=== PATIENT | female | born 1950 | race Caucasian/White ===

== ENCOUNTER 2019-01-14 14:01 | Emergency (ER) | payer MEDICARE, MEDICAID ==
[~2019-01-14] VITALS: Ht 172.7 cm; Wt 75.0 kg
[~2019-01-14 14:01] MED LIST: ALBU18HF2 IH; ASPI81TA52 PO; BUDE10.23 IH; DANT25CA PO; DIT5T PO; IBUP-1984 PO; LAMO100T2 PO; LEVO50TA67 PO; MULT-1074 PO; NORCO10T PO; OMEP-84 PO; OXYC20TA55 PO; TIOT18CA7 IH; ZOF4T PO
[2019-01-14 14:03] VITALS: BP 126/54
== END 2019-01-14 15:48 | disposition home or self-care (01) ==
LOC: ER 14:02
DX: S52.591A Other fractures of lower end of right radius, initial encounter for closed fracture (principal); J44.9 Chronic obstructive pulmonary disease, unspecified; G89.29 Other chronic pain; Z88.0 Allergy status to penicillin; Z88.8 Allergy status to other drugs, medicaments and biological substances; Z79.82 Long term (current) use of aspirin; Z79.899 Other long term (current) drug therapy; W18.39XA Other fall on same level, initial encounter; Y93.01 Activity, walking, marching and hiking; Y92.89 Other specified places as the place of occurrence of the external cause; Y99.8 Other external cause status
CPT/HCPCS: 29125; 73110; 99283

== ENCOUNTER 2019-12-12 06:27 | Day surgery (SDC) | payer MEDICARE, MEDICAID ==
[~2019-12-12] VITALS: Ht 170.2 cm; Wt 75.0 kg
[2019-12-12] VITALS (11 sets, daily range): BP systolic 105–122; BP diastolic 40–50
[2019-12-12] MEDS ORDERED: diphenhydrAMINE 25mg capsule PO PRN (06:55)
[2019-12-12] MEDS ORDERED: LORazepam 0.5 MG tablet PO PRN (06:55)
[2019-12-12] MEDS ORDERED: nitroGLYCERIN 0.4mg SUBLingual tab SL PRN ×2 (06:55→11:35)
[2019-12-12] MEDS ORDERED: normal saline 1,000 ML IV SCH (06:55)
[2019-12-12] MEDS ORDERED: IBUP-1986 PO (07:05)
[2019-12-12] MEDS ORDERED: BUPR75TA8 PO (07:05)
[2019-12-12] MEDS ORDERED: BACL10TA2 PO (07:05)
[2019-12-12 07:07] LABS: BASOPHILS % (AUTO) 0.4 % (0-1); EOSINOPHILS # (AUTO) 0.2 X10'3 (0-0.9); EOSINOPHILS % (AUTO) 2.5 % (0-6); HEMATOCRIT 43.7 % (35.0-45.0); HEMOGLOBIN 14.4 g/dl (12.0-16.0); LYMPHOCYTES # (AUTO) 2.7 X10'3 (1.1-4.8); LYMPHOCYTES % (AUTO) 29.6 % (21-51); MEAN CORPUSCULAR HEMOGLOBIN 30.6 PG (27.0-31.0); MEAN CORPUSCULAR HGB CONC 33.1 g/dL (33.0-36.5); MEAN CORPUSCULAR VOLUME 92.6 FL (78-98); MEAN PLATELET VOLUME 7.5 FL (7.4-10.4); MONOCYTES # (AUTO) 0.9 X10'3 (0-0.9); MONOCYTES % (AUTO) 9.4 % (2-12); NEUTROPHILS # (AUTO) 5.3 X10'3 (1.8-7.7); NEUTROPHILS % (AUTO) 58.1 % (42-75); PLATELET COUNT 404 X10'3 (140-440); RED BLOOD COUNT 4.71 X10'6 (4.20-5.60); WHITE BLOOD COUNT 9.2 X10'3 (4.5-11.0)
[2019-12-12] MEDS ORDERED: LEVO25TA7 PO (07:07)
[2019-12-12] MEDS ORDERED: OXYC10TA57 PO (07:07)
[2019-12-12 07:18] LABS: ALBUMIN 3.6 G/DL (3.4-5.0); ANION GAP 7 (8-16); BLOOD UREA NITROGEN 12 MG/DL (7-18); BUN/CREATININE RATIO 17.6 (6.6-38.0); CALCIUM 9.2 MG/DL (8.5-10.1); CHLORIDE 107 MMOL/L (99-107); CREATININE 0.68 MG/DL (0.40-0.90); GLUCOSE 99 MG/DL (70-104); POTASSIUM 3.9 MMOL/L (3.5-5.1); SODIUM 143 MMOL/L (135-145); TOTAL CARBON DIOXIDE 28.7 MMOL/L (24-32); eGFR 86 ML/MIN
[2019-12-12 07:19] LABS: PARTIAL THROMBOPLASTIN TIME 28 SECONDS (22-32)
[2019-12-12] MEDS ORDERED: midazolam 2 mg/2 ml injection ONE ×2 (09:56→10:45)
[2019-12-12] MEDS ORDERED: LIDOcaine 1% (10mg/ml)w/preservative injection 20ml MDV ONE (09:56)
[2019-12-12] MEDS ORDERED: heparin 1,000 UNITS/NS 500ml 500 ML ONE (09:56)
[2019-12-12] MEDS ORDERED: fentaNYL/PF 50MCG/1 ML 2ML syringe ONE (09:56)
[2019-12-12] MEDS ORDERED: iohexol 350MG/ML 100ml bottle IV ONE (09:56)
[2019-12-12] MEDS ORDERED: iohexol 350 MG/ML 50ML vial IV ONE (09:56)
[2019-12-12] MEDS ORDERED: HYDROcodone/acetaminophen 5mg/325mg tablet PO PRN (11:30)
[2019-12-12] MEDS ORDERED: ondansetron/PF 4mg/2ml inj IV PRN (11:30)
[2019-12-12] MEDS ORDERED: normal saline 1000ml 1,000 ML IV SCH (11:30)
[2019-12-12] MEDS ORDERED: HYDROcodone/acetaminophen 10/325mg tab PO PRN (11:35)
[2019-12-12] MEDS ORDERED: OXAZEpam 15mg capsule PO PRN (11:35)
[2019-12-12] MEDS ORDERED: proCHLORperazine 10 MG/2 ml inj IV PRN (11:35)
== END 2019-12-12 17:00 | disposition home or self-care (01) ==
LOC: SSTAY O 06:27 → MED 3N 06:32 → SSTAY O 17:00
PROVIDERS: ATTEND Internal Medicine Cardiovascular Disease
DX: Z01.810 Encounter for preprocedural cardiovascular examination (principal); I25.10 Atherosclerotic heart disease of native coronary artery without angina pectoris; C34.11 Malignant neoplasm of upper lobe, right bronchus or lung; I70.201 Unspecified atherosclerosis of native arteries of extremities, right leg; G89.4 Chronic pain syndrome; F17.210 Nicotine dependence, cigarettes, uncomplicated; J44.9 Chronic obstructive pulmonary disease, unspecified; E78.5 Hyperlipidemia, unspecified; Z98.890 Other specified postprocedural states; Z79.899 Other long term (current) drug therapy; Z79.01 Long term (current) use of anticoagulants
CPT/HCPCS: 36415; 71046; 80048; 85025; 85610; 85730; 93458; 99152; C1769; J1644; J2001; J2250; J3010; J7030; Q0163; Q9967; 93005; 99153; A4620; A6258; C1760

== ENCOUNTER 2020-01-07 11:08 | Outpatient (CLI) | payer MEDICARE, MEDICAID ==
[~2020-01-07 11:08] MED LIST changes: -ALBU18HF2 IH; -ASPI81TA52 PO; +BUPR150T6 PO; +CALC1TAB97 PO; -DANT25CA PO; -DIT5T PO; -IBUP-1984 PO; +LEVO25TA7 PO; -LEVO50TA67 PO; -MULT-1074 PO; +OXYC10TA57 PO; -OXYC20TA55 PO; -TIOT18CA7 IH; -ZOF4T PO
== END 2020-01-07 23:59 | disposition home or self-care (01) ==
LOC: RAD 11:08
PROVIDERS: ATTEND Surgery
DX: Z92.82 Status post administration of tPA (rtPA) in a different facility within the last 24 hours prior to admission to current facility (principal)
CPT/HCPCS: 71046

== ENCOUNTER 2020-06-28 10:03 | Emergency (ER) | payer MEDICARE, MEDICAID ==
[~2020-06-28] VITALS: Ht 170.2 cm; Wt 78.6 kg
[2020-06-28 10:32] VITALS: BP 131/75
== END 2020-06-28 10:53 | disposition home or self-care (01) ==
LOC: ER 10:04
DX: R06.02 Shortness of breath (principal); R05 Cough; J02.9 Acute pharyngitis, unspecified; J44.9 Chronic obstructive pulmonary disease, unspecified; G89.29 Other chronic pain; F17.200 Nicotine dependence, unspecified, uncomplicated; Z20.828 Contact with and (suspected) exposure to other viral communicable diseases; Z86.69 Personal history of other diseases of the nervous system and sense organs; Z88.0 Allergy status to penicillin; Z88.5 Allergy status to narcotic agent; Z79.899 Other long term (current) drug therapy
CPT/HCPCS: 36415; 87635; 99281; 99283

== ENCOUNTER 2021-09-18 08:57 | Emergency (ER) | payer MEDICARE, MEDICAID ==
[~2021-09-18] VITALS: Ht 170.2 cm; Wt 78.0 kg
[~2021-09-18 08:57] MED LIST changes: +BUPR-317 PO; -BUPR150T6 PO; +CALC-952 PO; -CALC1TAB97 PO
[2021-09-18 09:10] VITALS: BP 127/69
== END 2021-09-18 11:27 | disposition home or self-care (01) ==
LOC: ER 08:58
DX: M25.562 Pain in left knee (principal); R56.9 Unspecified convulsions; J44.9 Chronic obstructive pulmonary disease, unspecified; G89.29 Other chronic pain; Z86.69 Personal history of other diseases of the nervous system and sense organs; Z85.118 Personal history of other malignant neoplasm of bronchus and lung; Z98.890 Other specified postprocedural states; Z88.0 Allergy status to penicillin; Z88.8 Allergy status to other drugs, medicaments and biological substances; Z79.899 Other long term (current) drug therapy
CPT/HCPCS: 73564; 99283

== ENCOUNTER 2023-10-20 13:34 | Emergency (ER) | payer MEDICARE, MEDICAID ==
[~2023-10-20] VITALS: Ht 170.2 cm; Wt 77.3 kg
[2023-10-20 13:37] VITALS: BP 139/55; PULSE 82; RESP 18; TEMP 97.8; O2SAT 94
[2023-10-20 14:37] LABS: BASOPHILS % (AUTO) 0.3 % (0-1); EOSINOPHILS # (AUTO) 0.2 X10'3 (0-0.9); EOSINOPHILS % (AUTO) 1.3 % (0-6); HEMATOCRIT 42.2 % (35.0-45.0); LYMPHOCYTES # (AUTO) 2.9 X10'3 (1.1-4.8); LYMPHOCYTES % (AUTO) 24.4 % (21-51); MEAN CORPUSCULAR HEMOGLOBIN 30.7 PG (27.0-31.0); MEAN CORPUSCULAR HGB CONC 33.2 g/dL (33.0-36.5); MEAN CORPUSCULAR VOLUME 92.5 FL (78-98); MEAN PLATELET VOLUME 7.5 FL (7.4-10.4); MONOCYTES # (AUTO) 0.9 X10'3 (0-0.9); MONOCYTES % (AUTO) 7.1 % (2-12); NEUTROPHILS % (AUTO) 66.9 % (42-75); PLATELET COUNT 373 X10'3 (140-440); RED BLOOD COUNT 4.56 X10'6 (4.20-5.60); RED CELL DISTRIBUTION WIDTH 14.6 % (11.5-14.5)
[2023-10-20 15:03] LABS: ALBUMIN 3.5 G/DL (3.4-5.0); ANION GAP 11 (8-16); BLOOD UREA NITROGEN 11 MG/DL (7-18); BUN/CREATININE RATIO 14.1 (10.0-20.0); CALCIUM 8.6 MG/DL (8.5-10.1); CHLORIDE 107 MMOL/L (99-107); CREATININE 0.78 MG/DL (0.40-0.90); GLUCOSE 154 MG/DL (70-104); POTASSIUM 3.9 MMOL/L (3.5-5.1); PRO BRAIN NATRIURETIC PEPTIDE 65 PG/ML (0-125); SODIUM 145 MMOL/L (135-145); eCRCL 64 ML/MIN; eGFR 73 ML/MIN
[2023-10-22] MEDS ORDERED: BUDE10.2 INH (00:41)
[2023-10-22] MEDS ORDERED: ALB0.5UD NEB (00:41)
[2023-10-22] MEDS ORDERED: LEVO750T68 PO (12:19)
[2023-10-22] MEDS ORDERED: ONDA4TAB12 PO (12:19)
== END 2023-10-20 19:23 | disposition left against medical advice (07) ==
LOC: EDBD → ER 13:35
DX: R07.89 Other chest pain (principal); Z53.21 Procedure and treatment not carried out due to patient leaving prior to being seen by health care provider
CPT/HCPCS: 36415; 71045; 80048; 83880; 84484; 85025; 93005; 99281

== ENCOUNTER 2025-05-24 08:09 | Inpatient (IN) | payer MEDICARE, MEDICAID ==
[2025-05-17 11:19] LABS: MEAN PLATELET VOLUME 7.5 FL (7.4-10.4); PRE OP HEMATOCRIT 44.7 % (35.0-45.0); PRE OP HEMOGLOBIN 14.6 g/dL (12.0-16.0); PRE OP PLATELET COUNT 463 X10'3 (140-440); RED CELL DISTRIBUTION WIDTH 14.6 % (11.5-14.5)
[2025-05-17 11:20] LABS: LEUKOCYTE ESTERASE ,URINE NEGATIVE (Neg); NITRITES, URINE POSITIVE (Neg); OCCULT BLOOD,URINE NEGATIVE (Neg)
[2025-05-17 11:32] LABS: UA COLLECTION TYPE NON-SPECIFIED
[2025-05-17 11:33] LABS: MUCUS STRANDS FEW /LPF (Neg); SQUAMOUS EPITHELIAL CELL,UR MODERATE /LPF (FEW)
[2025-05-17 11:35] LABS: PRE OP INR 1.0 INR; PRE OP PARTIAL THROMB. TIME 28.0 SECONDS (22-32); PRE OP PROTIME 10.2 SECONDS (9.0-12.0)
[2025-05-17 11:39] LABS: PRE OP WHITE BLOOD COUNT 16.5 10'3 (4.8-10.8)
[2025-05-17 11:45] LABS: CREATININE 0.54 MG/DL (0.40-0.90); PRE OP ALT 17 U/L (30-65); PRE OP ANION GAP 6 (8-16); PRE OP AST 16 U/L (10-37); PRE OP BILIRUB, TOTAL 0.3 MG/DL (0.0-1.0); PRE OP GLUCOSE 108 MG/DL (70-104); PRE OP POTASSIUM 3.5 MMOL/L (3.4-5.1); PRE OP SODIUM 142 MMOL/L (135-145); TOTAL CARBON DIOXIDE 28.8 MMOL/L (24-32); eGFR > 90 ML/MIN
--- NOTE | 2025-05-17 12:31 | RADIOLOGY REPORT ---
EXAM: DI CHEST,TWO VIEWS CLINICAL HISTORY: Pain COMPARISON: DI CHEST,SINGLE VIEW on DOS: 10/20/23, CHEST,TWO VIEWS on DOS: 01/07/20, CHEST,TWO VIEWS on DOS: 01/01/20, CHEST,SINGLE VIEW on DOS: 12/30/19, CHEST,SINGLE VIEW on DOS: 12/29/19 TECHNIQUE: Frontal and lateral view of the chest was obtained FINDINGS: Lines and Tubes: None Lungs: No focal consolidation. Stable elevation of the right hemidiaphragm. Pleura: No effusion. No pneumothorax. Cardiomediastinal contours: Unremarkable Bones: No acute osseous abnormality. IMPRESSION: No acute cardiopulmonary disease. Stable elevation of the right hemidiaphragm.
[~2025-05-24] VITALS: Ht 170.2 cm; Wt 53.3 kg
[2025-05-24] VITALS (23 sets, daily range): BP systolic 92–146; BP diastolic 47–72; PULSE 69–96; RESP 13–78; TEMP 98; O2SAT 88–98
[~2025-05-24 08:09] MED LIST changes: +ALBU8HFA PO; +ARFO15VI20 NEB; +BUDE0.256 NEB; -BUDE10.23 IH; -BUPR-317 PO; +BUPR100T13 PO; +MULT-1074 PO; -OMEP-84 PO; +OMEP20CA16 PO; -OXYC10TA57 PO; +OXYC9CAP PO; +REVE175V NEB; +calciferol PO
[2025-05-24] MEDS: ringers solution, lacted 1,000 ML IV SCH ×2 (09:04→13:20)
[2025-05-24 09:15] LABS: MEAN PLATELET VOLUME 7.4 FL (7.4-10.4); RED CELL DISTRIBUTION WIDTH 14.8 % (11.5-14.5)
[2025-05-24] MEDS ORDERED: BUPIVAcaine 2.5mg/ml inj 50ml vial (contains preservative) ONE (10:16)
[2025-05-24] MEDS ORDERED: BUPIVACAINE liposomal/PF 13.3 MG/ML 10mL vial IM ONE (10:17)
[2025-05-24] MEDS: albuterol 2.5 MG/3 ML nebule NEB PRN ×2 (10:22→19:52)
[2025-05-24] MEDS ORDERED: MIDAZolam 1 MG/ML 5ML VIAL ONE (10:41)
[2025-05-24] MEDS ORDERED: fentaNYL /PF 50mcg/ml 5ml ampule ONE ×2 (10:41→12:21)
[2025-05-24] MEDS ORDERED: rocuronium 10mg/ml inj IV ONE (10:48)
[2025-05-24] MEDS ORDERED: propofol inj 20 ML IV ONE (10:48)
[2025-05-24] MEDS ORDERED: LIDOcaine 2% (20mg/ml) 5ml vial ONE (10:48)
[2025-05-24] MEDS ORDERED: LIDOcaine 2% jelly 6ml syringe ***for topical use only ONE (10:53)
[2025-05-24] MEDS ORDERED: phenylephrine 10mg/ml inj. ONE (11:24)
[2025-05-24] MEDS: BUPIVACAINE liposomal/PF 13.3 MG/ML 10mL vial IM ONE (11:30)
[2025-05-24] MEDS: BUPIVAcaine/PF 2.5 mg/ml (0.25%) 30ml vial IJ ONE (11:30)
[2025-05-24] MEDS ORDERED: NORepinephrine 8mg/ 250ml NS 250 ML IV ONE (12:17)
--- NOTE | 2025-05-24 12:43 | RADIOLOGY REPORT ---
CT Chest without intravenous contrast INDICATION: PRE OP TECHNIQUE: Multidetector spiral CT of the chest was performed from the lung apices to the upper abdomen. Axial, coronal and sagittal multiplanar reformats were performed. Radiation Dose : 1. Chest: CTDI volume is 13.3 mGy. Dose-length product is 519 mGy*cm The dose indicators for CT are the volume Computed Tomography (CT) Dose Index (CTDIvol) and the Dose Length Product (DLP), and are measured in units of mGy and mGy-cm, respectively. These indicators are not patient dose, but values generated from the CT scanner acquisition factors. The report includes radiation exposure data for exposures received during this examination. Comparison: DI CHEST,TWO VIEWS on DOS: 05/17/25, CT CT CHEST ABDOMEN PELVIS on DOS: 10/21/23, DI CHEST,SINGLE VIEW on DOS: 10/20/23, CHEST,TWO VIEWS on DOS: 01/07/20, CHEST,TWO VIEWS on DOS: 01/01/20 Findings: Lower neck: Normal thyroid. Lungs: No focal consolidation. Increased 1.1 cm nodule in the left upper lobe, image 26. 0.3 cm nodule in the right lower lobe, image 32. This is newly seen. Heart/Vascular Structures: Cardiomegaly. Coronary artery calcifications. Vascular calcifications of the aorta. Single-vessel mildly increased coronary artery disease. Lymph Nodes: No adenopathy Pleura: No pleural effusion or significant pneumothorax. Musculoskeletal: No acute osseous abnormality. Soft tissues: Normal. Upper abdomen: Small volume pneumobilia. Few left hepatic lobe cysts. Post cholecystectomy. IMPRESSION: Increased 1.1 cm nodule in the left upper lobe, image 26. 0.3 cm nodule in the right lower lobe, image 32. This is newly seen. Fleischner Society pulmonary nodule recommendations (2017): Single solid nodule <6 mm Low-risk patients: no routine follow-up required High-risk patients: optional CT at 12 months (particularly with suspicious nodule morphology and/or upper lobe location) Solitary solid nodule 6-8 mm Low-risk patients: CT at 6-12 months, then consider CT at 18-24 months High-risk patients: CT at 6-12 months, then CT at 18-24 months Solitary solid nodule >8 mm (>250 mm3) Low-risk and high-risk patients: consider CT at 3 months, PET/CT, or tissue sampling Multiple solid nodules <6 mm Low-risk patients: no routine follow-up required High-risk patients: optional CT at 12 months Multiple solid nodules >6 mm Low-risk patients: CT at 3-6 months, then consider CT at 18-24 months High-risk patients: CT at 3-6 months, then CT at 18-24 months When multiple nodules are present, the most suspicious nodule should guide further individualized management. Solitary groundglass opacities < 6 mm require no follow-up Multiple groundglass opacities < 6 mm: CT 3-6 months. If stable consider CT at 2 , and 4 years Groundglass opacities >6 mm: follow-up in 6-12 months and then every 2 years for 5 years. Groundglass opacities greater than 6 mm with part solid component follow-up CT in 3-6 months to confirm persistence. If unchanged and solid component remains less than [address] for 5 years Multiple groundglass opacities greater than 6 mm: CT at 3-6 months. Subsequent management based on the most suspicious nodules. These recommendations do not necessarily apply to women, patients with immunosuppression or a prior history of cancer, patients with multiple nodules that are suspicious for metastasis or infection, or patients with mediastinal lymphadenopathy or pleural effusion in whom cancer is strongly suspected.
[2025-05-24] MEDS ORDERED: INDOCYANINE GREEN 25 MG/10 ML VIAL IV ONE (13:16)
[2025-05-24] MEDS ORDERED: fentaNYL/PF 50MCG/1 ML 2ML syringe IV PRN ×2 (13:20)
[2025-05-24] MEDS ORDERED: HYDROmorphone/PF 0.2 MG/ML SYRINGE IV PRN (13:20)
[2025-05-24] MEDS ORDERED: morphine 4 MG/ML inj SYRINge IV PRN ×3 (13:20→16:05)
[2025-05-24] MEDS ORDERED: enalaprilat 1.25mg/ml 2ml vial IV PRN (13:20)
[2025-05-24] MEDS ORDERED: labetalol 20mg/4ml (5mg/ml) syringe IV PRN (13:20)
[2025-05-24] MEDS ORDERED: ondansetron/PF 4mg/2ml inj IV PRN (13:20)
--- NOTE | 2025-05-24 15:56 | OPERATIVE REPORT ---
Operative Report Providers to CC ~ Date of Procedure: May 24, 2025 Pre-Operative Diagnosis: deja nsclc Post-Operative Diagnosis SAME as PRE-Op Procedure Performed robo DEJA trisegmentectomy/node dissection/chest tube Surgeon: nakul whiting Anesthesiologist: Kofi Willams Type of Anesthesia: General Findings: deja mass Estimated Blood Loss: 200 ml Specimen Removed: DEJA trisegmentectomy/multiple nodes HECTOR RODRIGUEZ MD May 24, 2025 15:56
[2025-05-24] MEDS: HYDROmorphone/PF 0.2 MG/ML SYRINGE IV PRN (16:00)
[2025-05-24] MEDS: acetaminophen 1,000mg/100ml IV 100 ML IV ONE (16:01)
[2025-05-24] MEDS ORDERED: metoclopramide 5 mg/ml inj IV PRN (16:05)
[2025-05-24 16:10] LABS: ABG BASE EXCESS -3.2 mmol/L (-2.0-3.0); ABG HCO3 23.7 mmol/L (21.0-28.0); ABG OXYGEN SATURATION 99.6 % (94.0-98.0); ABG PCO2 (T) 49.7 mmHg (32.0-45.0); ABG PH (T) 7.294 (7.350-7.450); ABG PO2 (T) 245.8 mmHg (83.0-108.0); FCOHb 0.7 % (0.5-1.5); FHHb 0.4 % (0.0-5.0); FIO2 60.0 mmHg/%; FLOW 10 L/min; FMetHb 0.1 % (0.0-1.5); FO2Hb 98.8 % (94.0-98.0); MODE SIMPLE MASK; PATIENT TEMPERATURE 36.7; TOTAL HEMOGLOBIN 12.4 G/dl (12.0-16.0)
--- NOTE | 2025-05-24 16:19 | RADIOLOGY REPORT ---
EXAM: DI CHEST,SINGLE VIEW CLINICAL HISTORY: post op lung and central line placement TECHNIQUE: Single AP view of the chest WID: COMPARISON: CT CT CHEST on DOS: 05/24/25, FINDINGS: Lines and tubes: Right IJ central venous catheter with the tip projecting over the low SVC. There is a left thoracostomy tube with the tip projecting over the left lung apex. Scattered surgical clips project over the right chest. Chest: The heart size and pulmonary vasculature is within normal limits. There is an mixed airspace consolidation in the left perihilar region. Trace Left pneumothorax. Limited depth of inspiration. The osseous structures are grossly intact. IMPRESSION: 1. Trace left apical pneumothorax with a left thoracostomy tube in place. 2. Mixed airspace consolidation in the left perihilar region presumably related to postoperative change such as blood products, atelectasis, or fluid. 3. Right IJ central venous catheter with the tip projecting over the low SVC.
[2025-05-24 17:44] LABS: ABG BASE EXCESS -0.8 mmol/L (-2.0-3.0); ABG HCO3 25.4 mmol/L (21.0-28.0); ABG OXYGEN SATURATION 92.1 % (94.0-98.0); ABG PCO2 (T) 47.8 mmHg (32.0-45.0); ABG PH (T) 7.342 (7.350-7.450); ABG PO2 (T) 63.0 mmHg (83.0-108.0); FCOHb 0.9 % (0.5-1.5); FHHb 7.8 % (0.0-5.0); FIO2 32.0 mmHg/%; FLOW 3 L/min; FMetHb 0.0 % (0.0-1.5); FO2Hb 91.3 % (94.0-98.0); MODE NC; PATIENT TEMPERATURE 36.7; TOTAL HEMOGLOBIN 12.7 G/dl (12.0-16.0)
[2025-05-24] MEDS: morphine 4 MG/ML inj SYRINge IV PRN (18:50)
[2025-05-24] MEDS: potassium Cl 20mEq in D5-NS 1,000 ML IV SCH (18:57)
[2025-05-24] MEDS: ketorolac trometh 15mg/ml vial 15 MG/ML ML IV SCH (19:09)
[2025-05-24] MEDS: albumin (Human) 5% 250ml 250 ML IV ONE (21:43)
[2025-05-24] MEDS: potassium Cl 20mEq in NS 1,000 ML IV ONE (22:52)
[2025-05-24] MEDS: potassium Cl 20mEq in NS 1,000 ML IV SCH (22:57)
[2025-05-24] MEDS: HYDROmorphone inj. 0.5 MG/0.5 ML DISP.SYRIN IV PRN (23:20)
[2025-05-25] VITALS (28 sets, daily range): BP systolic 94–130; BP diastolic 41–94; PULSE 74–95; RESP 13–25; O2SAT 85–96
[2025-05-25] MEDS: HYDROcodone/acetaminophen 10/325mg tab PO PRN (02:06)
[2025-05-25 02:42] LABS: MEAN PLATELET VOLUME 7.5 FL (7.4-10.4); RED CELL DISTRIBUTION WIDTH 14.3 % (11.5-14.5)
[2025-05-25 02:56] LABS: CREATININE 0.47 MG/DL (0.40-0.90); TOTAL CARBON DIOXIDE 26.8 MMOL/L (24-32); eCRCL 105 ML/MIN; eGFR > 90 ML/MIN
--- NOTE | 2025-05-25 06:25 | RADIOLOGY REPORT ---
CHEST RADIOGRAPH Indication: POST OP Technique: Single frontal view of the chest was obtained COMPARISON: DI CHEST,SINGLE VIEW on DOS: 05/24/25, CT CT CHEST on DOS: 05/24/25, DI CHEST,TWO VIEWS on DOS: 05/17/25, DI CHEST,SINGLE VIEW on DOS: 10/20/23, CHEST,TWO VIEWS on DOS: 01/07/20 FINDINGS: Lines and Tubes: Unchanged. Lungs: Stable appearing left suprahilar opacity. Pleura: No effusion. No pneumothorax. Cardiomediastinal contours: Unremarkable Bones: Unremarkable IMPRESSION: 1. Stable left suprahilar opacity. 2. Lines and tubes unchanged.
--- NOTE | 2025-05-25 06:27 | OPERATIVE REPORT ---
DATE OF SURGERY: 05/24/2025 DICTATING PHYSICIAN: Rangel Guevara MD PREOPERATIVE DIAGNOSES: 1. Left lower lobe non-small cell lung cancer. 2. Status post right upper lobectomy for carcinoid tumor. 3. Status post right lower lobe wedge resection for carcinoid tumor. PROCEDURES PERFORMED: Left upper lobe robotic thoracoscopic trisegmentectomy. ____ dissection. Chest tube placement. SURGEON: Rangel Guevara MD PRODUCT DEVELOPMENT MANAGER: None. ANESTHESIA: General. DRAINS: Chest tube x 1. INDICATIONS FOR OPERATION: The patient is a 74-year-old female with a history of a carcinoid tumor for which she underwent a right lobectomy and wedge resection. A few years ago, developed a left upper lobe mass. Biopsy revealed non-small cell lung cancer. ____ were adequate for resection and taken to surgery for trisegmentectomy. INTRAOPERATIVE FINDINGS: The patient had a 1 cm mass in the left upper lobe in the apical segments ____ adhesions. DESCRIPTION OF PROCEDURE: The patient was placed supine on the operating table after induction of general anesthesia. She was placed in the right lateral decubitus position. The left chest was then prepped and draped. An incision was made in the posterior axillary line proximal to the eighth intercostal space after the lung was collapsed. Six port was then placed anteriorly and six port placed inferiorly. Two ports were then placed posteriorly. After intercostal nerve ablation, the robot was brought to the field and the camera port docked. Camera placed. Camera targeted. ____ were then docked and instruments were placed. The chest was then explored. Adhesions were then taken down. The lower lobe was retracted cephalad. ____ was taken down. The ____ was then retracted anteriorly and the posterior hilar dissection was performed. Station 7 nodes were identified and sent to pathology for evaluation. The lobe was retracted inferiorly. Station 5 and 6 nodes were sent to pathology for evaluation. The lobe was then retracted posteriorly. Anterolateral dissection was performed. The branches to the apical segments of the upper lobe were then identified and isolated. Attention was then turned to the fissure. ____ was identified within the fissure. The posterior ____ branch of the upper lobe was identified, isolated, and divided using ANNA vascular stapler. After division of the posterior ____ branches, the branches of the superior pulmonary vein to the ____ segments were isolated and divided using a ANNA 75 stapler. Bifurcation of ____ were identified, isolated, and divided with Endo ANNA vascular stapler. The bifurcation of the upper lobe bronchus to the apical segments and the lingula was then identified and isolated. The bronchus to the upper apical segments was divided with an Endo ANNA stapler. The patient was then given ICG. The intersegmental plane was marked with cautery. The upper segments were then from the lingula using ____ ANNA stapler. The patient had some bleed from the lingular vessel at that time. Hemostasis was obtained with topical agents. After isolation of segments 1, 2, and 3, hemostasis was found to be adequate with the use of hemostat and topical agents. The robot was then removed from the field after the ports were undocked. ____ was then placed in an Endobag prior to removal of the robot. ____ removed easily in an Endobag. The chest was irrigated with a large amount of antibiotic-containing solution. Topical agents used for hemostasis were found to be intact. A #28 tube was then placed and directed apically. The lung was then re-expanded. The ports were then removed. The ____ closed in layers. The skin was closed with separate stitches. Dressings were applied. ____ and the patient was transferred to recovery room in critical condition. Rangel Guevara MD TID: [id number] RECEIPT: [id number] ELLA/MICHELL/AZAEL
--- NOTE | 2025-05-25 11:51 | PROGRESS NOTE ---
Progress Note ID Providers to CC ~ Progress Note Progress Note: awake-complains of pain/vss/lungs-small leak/cxr noted/labs noted a/p 1.. s/p deja trisegmentectomy-doing well/cont supportive care HECTOR RODRIGUEZ MD May 25, 2025 11:51
[2025-05-25] MEDS: ondansetron/PF 4mg/2ml inj IV PRN (23:31)
[2025-05-26] VITALS (41 sets, daily range): BP systolic 90–135; BP diastolic 43–69; PULSE 83–102; RESP 12–25; O2SAT 86–96
[2025-05-26 03:16] LABS: ABG BASE EXCESS 2.1 mmol/L (-2.0-3.0); ABG HCO3 28.3 mmol/L (21.0-28.0); ABG OXYGEN SATURATION 96.0 % (94.0-98.0); ABG PCO2 (T) 50.4 mmHg (32.0-45.0); ABG PH (T) 7.366 (7.350-7.450); ABG PO2 (T) 77.4 mmHg (83.0-108.0); FCOHb 0.9 % (0.5-1.5); FHHb 4.0 % (0.0-5.0); FIO2 50.0 mmHg/%; FMetHb 0.3 % (0.0-1.5); FO2Hb 94.8 % (94.0-98.0); MODE MASK - VENTI; PATIENT TEMPERATURE 36.6; TOTAL HEMOGLOBIN 12.4 G/dl (12.0-16.0)
--- NOTE | 2025-05-26 04:08 | RADIOLOGY REPORT ---
CHEST RADIOGRAPH Indication: POST OP Technique: Single frontal view of the chest was obtained COMPARISON: DI CHEST,SINGLE VIEW on DOS: 05/26/25, DI CHEST,SINGLE VIEW on DOS: 05/25/25, DI CHEST,SINGLE VIEW on DOS: 05/24/25, CT CT CHEST on DOS: 05/24/25, DI CHEST,TWO VIEWS on DOS: 05/17/25 FINDINGS: Lines and Tubes: Unchanged. Lungs: Grossly stable appearing left perihilar and suprahilar pulmonary airspace disease. Pleura: No effusion. No pneumothorax. Cardiomediastinal contours: Unremarkable Bones: Unremarkable IMPRESSION: 1. Grossly stable appearing left perihilar and suprahilar pulmonary airspace disease. 2. Lines and tubes unchanged.
[2025-05-26 04:26] LABS: MEAN PLATELET VOLUME 7.6 FL (7.4-10.4); RED CELL DISTRIBUTION WIDTH 15.0 % (11.5-14.5)
[2025-05-26 04:37] LABS: CREATININE 0.55 MG/DL (0.40-0.90); TOTAL CARBON DIOXIDE 31.3 MMOL/L (24-32); eCRCL 90 ML/MIN; eGFR > 90 ML/MIN
[2025-05-26] MEDS: albumin (human) 25% 100ml IV 100 ML IV ONE (08:28)
[2025-05-26] MEDS: ketorolac trometh 15mg/ml vial 15 MG/ML ML IV PRN (11:32)
--- NOTE | 2025-05-26 11:50 | PROGRESS NOTE ---
Progress Note ID Providers to CC ~ Progress Note Progress Note: sob/vss/lungs-persistent leak/cxr noted/labs noted a/p 1. s/p deja segmentectomy-02 requirements up/good response to lasix-sputum culture pending HECTOR RODRIGUEZ MD May 26, 2025 11:50
[2025-05-26] MEDS: albumin (human) 25% 100ml IV 100 ML IV SCH (16:21)
[2025-05-26] MEDS: HYDROcodone/acetaminophen 10/325mg tab PO PRN (17:01)
[2025-05-26] MEDS: CEFEPIME 2gm in D5W 50mL 50 ML IV SCH (19:54)
[2025-05-26] MEDS: acetaminophen 1,000mg/100ml IV 100 ML IV PRN (20:36)
[2025-05-27] VITALS (36 sets, daily range): BP systolic 92–142; BP diastolic 41–62; PULSE 83–106; RESP 12–24; O2SAT 89–96
--- NOTE | 2025-05-27 05:47 | RADIOLOGY REPORT ---
CHEST RADIOGRAPH Indication: POST OP Technique: Single frontal view of the chest was obtained COMPARISON: DI CHEST,SINGLE VIEW on DOS: 05/26/25, DI CHEST,SINGLE VIEW on DOS: 05/26/25, DI CHEST,SINGLE VIEW on DOS: 05/25/25, DI CHEST,SINGLE VIEW on DOS: 05/24/25, CT CT CHEST on DOS: 05/24/25 FINDINGS: Lines and Tubes: Unchanged. Lungs: Stable appearing left suprahilar pulmonary opacity. Pleura: No effusion. No pneumothorax. Cardiomediastinal contours: Unremarkable Bones: Unremarkable IMPRESSION: 1. Stable appearing left suprahilar pulmonary opacity. 2. Lines and tubes unchanged.
[2025-05-27 05:52] LABS: MEAN PLATELET VOLUME 7.7 FL (7.4-10.4); RED CELL DISTRIBUTION WIDTH 14.9 % (11.5-14.5)
[2025-05-27 06:16] LABS: CREATININE 0.48 MG/DL (0.40-0.90); PHOSPHORUS 3.8 MG/DL (2.3-4.5); TOTAL CARBON DIOXIDE 37.5 MMOL/L (24-32); eCRCL 103 ML/MIN; eGFR > 90 ML/MIN
[2025-05-27 07:59] LABS: ABG BASE EXCESS 9.6 mmol/L (-2.0-3.0); ABG HCO3 36.8 mmol/L (21.0-28.0); ABG OXYGEN SATURATION 94.9 % (94.0-98.0); ABG PCO2 (T) 65.4 mmHg (32.0-45.0); ABG PH (T) 7.371 (7.350-7.450); ABG PO2 (T) 74.5 mmHg (83.0-108.0); ALLEN'S TEST POSITIVE; FCOHb 0.7 % (0.5-1.5); FHHb 5.0 % (0.0-5.0); FIO2 65.0 mmHg/%; FMetHb 0.3 % (0.0-1.5); FO2Hb 94.0 % (94.0-98.0); MODE MASK - BIPAP; PATIENT TEMPERATURE 37.5; RESPIRATORY RATE 16 b/min; TOTAL HEMOGLOBIN 11.8 G/dl (12.0-16.0)
--- NOTE | 2025-05-27 12:48 | RADIOLOGY REPORT ---
EXAM: CT CTA CHEST PE W/ IV CONTRAST HISTORY: sob TECHNIQUE: CT angiogram was performed. CT scans at this facility use dose modulation, iterative reconstruction, and/or weight based dosing when appropriate to reduce radiation dose to as low as reasonably achievable. Coronal and sagittal reformations and maximum intensity projection images were created from the transaxial source data by the electrical design technologist and workstation, as well as 3-D volume rendered images with MIPs. 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 No pericardial effusion. No aneurysmal dilatation of the great vessels. Coronary artery calcifications. [PULMONARY ARTERIES]: No pulmonary arterial filling defect. Normal caliber of the main pulmonary artery. No evidence of elevated right heart pressures. [UPPER ABDOMEN]: Pneumobilia cholecystectomy. [MUSCULOSKELETAL]: No acute fracture or aggressive focal osseous lesion. Multilevel degenerative change of the visualized spine. Degenerative change of the left glenohumeral joint. Superior endplate height loss measuring 10 percent of T11 and T8 with the associated Schmorl's nodes. [CHEST WALL]: Unremarkable. [LUNG PARENCHYMA/PLEURAL SPACE]: Left anterior chest chest tube. Small left apical pneumothorax. Expected soft tissue emphysema along the left lateral chest wall. Small left-sided pleural effusion with atelectasis in the left lung base. Radiopaque densities projecting along the right lateral chest wall and along the fissure likely related to prior right-sided lobectomy. Postoperative changes related to left upper lobe trisegmentectomy. Mild centrilobular emphysema. In the areas of surgical resection of the left upper lobe, small area presumed postoperative change in measuring 4.2 x 1.7 cm with the adjacent suture line. IMPRESSION: 1. No pulmonary embolism. 2. Small left apical pneumothorax with left anterior chest tube in place. 3. Small left-sided pleural effusion. 4. Postoperative changes related to left upper lobe trisegmentectomy and atelectasis in bilateral bases. Difficult to exclude superimposed trace consolidation correlate with physical exam. 5. 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
[2025-05-27 15:58] LABS: ABG BASE EXCESS 7.1 mmol/L (-2.0-3.0); ABG HCO3 33.5 mmol/L (21.0-28.0); ABG OXYGEN SATURATION 90.4 % (94.0-98.0); ABG PCO2 (T) 57.2 mmHg (32.0-45.0); ABG PH (T) 7.388 (7.350-7.450); ABG PO2 (T) 58.5 mmHg (83.0-108.0); ALLEN'S TEST POSITIVE; FCOHb 1.0 % (0.5-1.5); FHHb 9.5 % (0.0-5.0); FIO2 71.0 mmHg/%; FLOW 15 L/min; FMetHb 0.3 % (0.0-1.5); FO2Hb 89.2 % (94.0-98.0); MODE HIGH FLOW; PATIENT TEMPERATURE 37.6; TOTAL HEMOGLOBIN 12.3 G/dl (12.0-16.0)
--- NOTE | 2025-05-27 17:27 | PROGRESS NOTE ---
Progress Note ID Providers to CC ~ Progress Note Progress Note: awake-sob improving/vss/lungs-air leak improving/labs noted/cta neg for pe/echo noted a/p 1. s/p deja segmentectomy-slow progress/cont antibx-resume po HECTOR RODRIGUEZ MD May 27, 2025 17:27
--- NOTE | 2025-05-27 17:29 | CARDIOLOGY REPORT ---
APPROVED REPORT EXAM: Limited 2D, Doppler, and color-flow Echocardiogram. Patient Location: 2011 Blood Pressure: 106/61 mmHg Heart Rate: 90's bpm Rhythm: SINUS Indications SHORTNESS OF BREATH Armed Security Professional: MD RAFA Previous echo: 10-21-23 [facility] EF 65%, RVSP 39 mmHg, trMR, trTR 2D Dimensions LA Diam 4.4 cm IVSd 1.0 (0.7-1.1cm) LVDd 3.5 cm PWd 1.0 (0.7-1.1cm) IVSs 1.3 (0.8-1.2cm) LVDs 2.1 (2.5-4.0cm) PWs 1.3 (0.8-1.2cm) LVOT Diameter 2.00 (1.8-2.4cm) LVEF(%) 69.4 (>50%) Ao Asc Diam. 3.07 cm FS (%) 38.1 % SV 35.8 ml CO 3.2 L/min M-Mode Dimensions Aortic Root 3.15 (2.2-3.7cm) Aortic Cusp Exc 1.76 (1.5-2.0cm) LEFT VENTRICLE Small LV size and wall thickness. Overall systolic function is normal. LVEF is 65-70%. RIGHT VENTRICLE RV appears normal in size and function. ATRIA Left atrium is mildly dilated. AORTIC VALVE Trileaflet AV appears mildly sclerotic without obvious stenosis. No insufficiency. Unable to fully evaluate due to chest tube and bandages. MITRAL VALVE Mild MV annular calcification without obvious stenosis. ? Trace regurgitation. Unable to fully evaluate due to chest tube and bandages. TRICUSPID VALVE TV appears structurally normal with ? trace regurgitation. Unable to fully evaluate due to chest tube and bandages. PULMONIC VALVE Normal PV without stenosis, physiologic insufficiency. GREAT VESSELS The aortic root is normal in size. PERICARDIUM Normal pericardium. No effusion. Other Information Study Quality: Technically limited, unable to access apical window due to chest tube and bandages.
[2025-05-27] MEDS: heparin, porcine 5000 units/ml vial SQ SCH (19:55)
[2025-05-28] VITALS (42 sets, daily range): BP systolic 103–138; BP diastolic 41–71; PULSE 87–112; RESP 15–28; O2SAT 86–98
[2025-05-28 05:42] LABS: MEAN PLATELET VOLUME 8.1 FL (7.4-10.4); RED CELL DISTRIBUTION WIDTH 14.4 % (11.5-14.5)
--- NOTE | 2025-05-28 05:51 | RADIOLOGY REPORT ---
CHEST RADIOGRAPH Indication: POST OP Technique: Single frontal view of the chest was obtained COMPARISON: CT CTA CHEST PE W/ IV CONTRAST on DOS: 05/27/25, DI CHEST,SINGLE VIEW on DOS: 05/27/25, DI CHEST,SINGLE VIEW on DOS: 05/26/25, DI CHEST,SINGLE VIEW on DOS: 05/26/25, DI CHEST,SINGLE VIEW on DOS: 05/25/25 FINDINGS: Lines and Tubes: Unchanged. Lungs: Stable appearing left perihilar opacity, minimal bibasilar pulmonary airspace disease and small bilateral pleural effusions. No pneumothorax. Cardiomediastinal contours: Unremarkable Bones: Unremarkable IMPRESSION: 1. Stable appearing left perihilar opacity, minimal bibasilar pulmonary airspace disease and small bilateral pleural effusions. 2. Lines and tubes unchanged.
[2025-05-28 06:11] LABS: CREATININE 0.41 MG/DL (0.40-0.90); PHOSPHORUS 2.6 MG/DL (2.3-4.5); TOTAL CARBON DIOXIDE 37.0 MMOL/L (24-32); eCRCL 121 ML/MIN; eGFR > 90 ML/MIN
[2025-05-28 09:42] LABS: ABG BASE EXCESS 8.6 mmol/L (-2.0-3.0); ABG HCO3 32.4 mmol/L (21.0-28.0); ABG OXYGEN SATURATION 89.7 % (94.0-98.0); ABG PCO2 (T) 42.6 mmHg (32.0-45.0); ABG PH (T) 7.502 (7.350-7.450); ABG PO2 (T) 51.5 mmHg (83.0-108.0); ALLEN'S TEST Yes; FCOHb 0.9 % (0.5-1.5); FHHb 10.2 % (0.0-5.0); FIO2 80.0 mmHg/%; FLOW 25 L/min; FMetHb 0.3 % (0.0-1.5); FO2Hb 88.6 % (94.0-98.0); MODE HIGH FLOW; PATIENT TEMPERATURE 37.6; TOTAL HEMOGLOBIN 13.2 G/dl (12.0-16.0)
[2025-05-28] MEDS: albumin (human) 25% 100 ML IV solution IV ONE ×2 (10:09→18:32)
[2025-05-28] MEDS: vancomycin/NS 1 GM ADD-VANTAGE 250 ML IV SCH (10:48)
[2025-05-28] MEDS: magnesium citrate 296ml oral solution PO ONE (11:45)
[2025-05-28] MEDS: hydrocortisone sod succ/PF 100mg/2ml inj. IV SCH (11:46)
[2025-05-28 13:45] LABS: ABG BASE EXCESS 3.6 mmol/L (-2.0-3.0); ABG HCO3 27.6 mmol/L (21.0-28.0); ABG OXYGEN SATURATION 91.2 % (94.0-98.0); ABG PCO2 (T) 40.6 mmHg (32.0-45.0); ABG PH (T) 7.453 (7.350-7.450); ABG PO2 (T) 59.9 mmHg (83.0-108.0); ALLEN'S TEST POSITIVE; FCOHb 0.9 % (0.5-1.5); FHHb 8.7 % (0.0-5.0); FIO2 80.0 mmHg/%; FLOW 25 L/min; FMetHb 0.3 % (0.0-1.5); FO2Hb 90.1 % (94.0-98.0); MODE HIGH FLOW; PATIENT TEMPERATURE 37.6; TOTAL HEMOGLOBIN 13.6 G/dl (12.0-16.0)
[2025-05-28] MEDS: magnesium hydroxide 30ml (MOM) UD suspension PO ONE (14:26)
--- NOTE | 2025-05-28 19:49 | PROGRESS NOTE ---
Progress Note ID Providers to CC ~ Progress Note Progress Note: awake-persistent cough/vss/lungs-min leak/cxr noted/labs noted a/p 1. s/p JERAMIE trisegmentectomy-+ sputum gs consistent with pneumonia/start [id number] antibx HECTOR RODRIGUEZ MD May 28, 2025 19:49
[2025-05-28] MEDS: magnesium hydroxide 30ml (MOM) UD suspension PO SCH (20:00)
[2025-05-29] VITALS (41 sets, daily range): BP systolic 109–141; BP diastolic 46–72; PULSE 82–116; RESP 13–37; O2SAT 80–97
[2025-05-29 05:03] LABS: MEAN PLATELET VOLUME 7.9 FL (7.4-10.4); RED CELL DISTRIBUTION WIDTH 14.4 % (11.5-14.5)
[2025-05-29 05:16] LABS: CREATININE 0.52 MG/DL (0.40-0.90); PHOSPHORUS 3.5 MG/DL (2.3-4.5); TOTAL CARBON DIOXIDE 36.5 MMOL/L (24-32); eCRCL 95 ML/MIN; eGFR > 90 ML/MIN
--- NOTE | 2025-05-29 05:51 | RADIOLOGY REPORT ---
CHEST RADIOGRAPH Indication: POST OP Technique: Single frontal view of the chest was obtained COMPARISON: DI CHEST,SINGLE VIEW on DOS: 05/28/25, DI CHEST,SINGLE VIEW on DOS: 05/27/25, DI CHEST,SINGLE VIEW on DOS: 05/26/25, DI CHEST,SINGLE VIEW on DOS: 05/26/25, DI CHEST,SINGLE VIEW on DOS: 05/25/25 FINDINGS: Lines and Tubes: Right central venous catheter in satisfactory position. Left chest tube in satisfactory position. Lungs: Small left apical pneumothorax. Pleura: Increased subcutaneous emphysema along the left chest wall. Cardiomediastinal contours: Unremarkable Bones: Unremarkable IMPRESSION: Small left apical pneumothorax. Left chest tube in satisfactory position.
[2025-05-29] MEDS ORDERED: ringers solution, lacted 1,000 ML IV SCH (07:25)
[2025-05-29] MEDS ORDERED: ringers solution, lacted 1,000 ML IV ONE (07:25)
[2025-05-29] MEDS: lactose-reduced food (Ensure Enlive) - 237ml bottle PO SCH (13:33)
[2025-05-29] MEDS: albumin (human) 25% 100 ML IV solution IV ONE (14:59)
--- NOTE | 2025-05-29 18:25 | PROGRESS NOTE ---
Progress Note ID Providers to CC ~ Progress Note Progress Note: sob improving/vss/lungs-small leak/labs noted/cxr noted a/p 1. s/p trisegmentectomy-02 requirements improving/cont antibx-solucortef HECTOR RODRIGUEZ MD May 29, 2025 18:25
--- NOTE | 2025-05-29 20:44 | RADIOLOGY REPORT ---
CLINICAL HISTORY: SOB TECHNIQUE: Single view of the chest was obtained. COMPARISON: DI CHEST,SINGLE VIEW on DOS: 05/29/25, DI CHEST,SINGLE VIEW on DOS: 05/28/25, DI CHEST,SINGLE VIEW on DOS: 05/27/25, DI CHEST,SINGLE VIEW on DOS: 05/26/25, DI CHEST,SINGLE VIEW on DOS: 05/26/25 FINDINGS: The heart size and pulmonary vasculature are normal. There is similar appearing bibasilar atelectasis. Left suprahilar opacities unchanged. Interval left-sided chest tube. There is a trace left apical pneumothorax. Right central line terminates in the cavoatrial junction IMPRESSION: left apicalUnchanged trace pneumothorax. Left-sided chest tube. Unchanged left suprahilar opacity.
[2025-05-29] MEDS: VANCOMYCIN LEVEL IV ONE (23:14)
[2025-05-29] MEDS: albuterol 2.5 MG/3 ML nebule NEB SCH (23:24)
[2025-05-30] VITALS (42 sets, daily range): BP systolic 118–149; BP diastolic 52–71; PULSE 80–107; RESP 0–24; O2SAT 85–98
--- NOTE | 2025-05-30 07:32 | RADIOLOGY REPORT ---
CHEST RADIOGRAPH Indication: POST OP Technique: Single frontal view of the chest was obtained Comparison: DI CHEST,SINGLE VIEW on DOS: 05/29/25 FINDINGS: Lines and Tubes: There is a right central venous catheter with the tip terminating in the superior vena cava. Left apically oriented chest tube is unchanged in position. Lungs: Bilateral airspace disease, unchanged. Pleura: No effusion. Increased size of a left apical pneumothorax now approximately 20%. Cardiomediastinal contours: Unremarkable Bones: No acute osseous abnormality. Chest wall: Left chest wall subcutaneous emphysema. IMPRESSION: 1. Increased size of a left apical pneumothorax now approximately 20%. Left chest tube unchanged in position. 2. Hazy bilateral airspace disease similar to prior study.
[2025-05-30] MEDS ORDERED: buPROPion 75mg tablet PO SCH (08:00)
[2025-05-30] MEDS: buPROPion 75mg tablet PO SCH (08:47)
--- NOTE | 2025-05-30 12:30 | VASCULAR REPORT ---
Bilateral lower extremity venous duplex Clinical History: edema Comparison: None Findings: Duplex Doppler evaluation of the deep venous systems of both lower extremities from the common femoral veins to the popliteal veins including color Doppler and spectral/pulsed waveform analysis was performed. Vein Imaging (Right) CFV (R): Compressible, Spontaneous, Respirophasic, Augmentation Reflux: ms SFJ (R): Compressible, Spontaneous, Respirophasic, Augmentation Reflux: ms FEM (R): Compressible, Spontaneous, Respirophasic, Augmentation Reflux: ms POP (R): Compressible, Spontaneous, Respirophasic, Augmentation Reflux: ms DFV (R): Compressible, Spontaneous, Respirophasic, Augmentation Reflux: ms PTV (R): Compressible, Spontaneous, Respirophasic, Augmentation GSV (R): Compressible, Spontaneous, Respirophasic, Augmentation Reflux: ms Reflux: ms Peroneals (R): Compressible, Spontaneous, Respirophasic, Augmentation Reflux: ms Vein Imaging (Left) CFV (L): Compressible, Spontaneous, Respirophasic, Augmentation Reflux: ms SFJ (L): Compressible, Spontaneous, Respirophasic, Augmentation Reflux: ms FEM (L): Compressible, Spontaneous, Respirophasic, Augmentation Reflux: ms POP (L): Compressible, Spontaneous, Respirophasic, Augmentation Reflux: ms DFV (L): Compressible, Spontaneous, Respirophasic, Augmentation Reflux: ms PTV (L): Compressible, Spontaneous, Respirophasic, Augmentation Reflux: ms GSV (L): Compressible, Spontaneous, Respirophasic, Augmentation Reflux: ms Peroneals (L): Compressible, Spontaneous, Respirophasic, Augmentation Reflux: ms CONCLUSION No sonographic evidence of deep vein thrombosis to bilateral lower extremity. Normal compressible veins with respirophasic flow and good augmentation throughout bilateral leg.
--- NOTE | 2025-05-30 14:22 | RADIOLOGY REPORT ---
CTA Chest with intravenous contrast INDICATION: r/o PE COMPARISON: DI CHEST,SINGLE VIEW on DOS: 05/30/25, DI CHEST,SINGLE VIEW on DOS: 05/29/25, DI CHEST,SINGLE VIEW on DOS: 05/29/25, DI CHEST,SINGLE VIEW on DOS: 05/28/25, CT CTA CHEST PE W/ IV CONTRAST on DOS: 05/27/25 TECHNIQUE: Multidetector spiral CTA of the chest was performed of the chest with intravenous contrast. PULMONARY ANGIOGRAPHY PROTOCOL was utilized using a bolus- tracking technique centered on the main pulmonary artery. Axial, coronal and sagittal multiplanar and MIP reformats were performed. Radiation Dose : 1. Chest: CTDI volume is 20.4 mGy. Dose-length product is 810.3 mGy*cm The dose indicators for CT are the volume Computed Tomography (CT) Dose Index (CTDIvol) and the Dose Length Product (DLP), and are measured in units of mGy and mGy-cm, respectively. These indicators are not patient dose, but values generated from the CT scanner acquisition factors. The report includes radiation exposure data for exposures received during this examination. Findings: Pulmonary artery: No pulmonary embolism. Lower neck: Normal thyroid. Lungs: Moderate volume subcutaneous emphysema along the left lateral chest wall and upper abdomen. Dependent atelectasis. Mild centrilobular emphysema. Postoperative changes related to left upper lobe trisegmentectomy. Surgical resection of the left upper lobe. Small volume pneumobilia. Heart/Vascular Structures: Cardiomegaly. Coronary artery calcifications. Vascular calcifications of the aorta. Lymph Nodes: No adenopathy. Pleura: No pleural effusion or significant pneumothorax. Musculoskeletal: No acute osseous abnormality. Soft tissues: Left chest tube in-situ. Right central venous catheter in satisfactory position. Upper abdomen: Limited portions of the upper abdomen are unremarkable. Unchanged laryngeal diverticulum measuring 2.9 cm along the right posterolateral margin of the upper trachea. IMPRESSION: No pulmonary embolism. Postoperative changes related to left upper lobe trisegmentectomy. Moderate volume subcutaneous emphysema along the left lateral chest wall and upper abdomen. Small volume pneumobilia. Overall, no significant interval change.
--- NOTE | 2025-05-30 20:41 | PROGRESS NOTE ---
Progress Note ID Providers to CC ~ Progress Note Progress Note: sob/vss/lungs-min leak/cta neg for pe/echo report pending/labs noted a/p 1. s/p segmentectomy-persistent hypoxia-cont [id number] HECTOR RODRIGUEZ MD May 30, 2025 20:41
[2025-05-30] MEDS: albumin (human) 25% 100 ML IV solution IV SCH (20:58)
[2025-05-30 21:26] LABS: MEAN PLATELET VOLUME 7.6 FL (7.4-10.4); RED CELL DISTRIBUTION WIDTH 14.4 % (11.5-14.5)
[2025-05-30 21:43] LABS: CREATININE 0.61 MG/DL (0.40-0.90); PHOSPHORUS 3.2 MG/DL (2.3-4.5); TOTAL CARBON DIOXIDE 35.8 MMOL/L (24-32); eCRCL 81 ML/MIN; eGFR > 90 ML/MIN
[2025-05-30] MEDS ORDERED: magnesium sulf-water 4G/100mL 100 ML IV PRN (22:15)
[2025-05-30] MEDS ORDERED: magnesium sulf-water 2g/50mL 50 ML IV PRN (22:15)
[2025-05-30] MEDS: potassium Cl 40MEQ/270ML bag 270 ML IV PRN (22:44)
[2025-05-30] MEDS: POTASSIUM CL IV ONE (22:52)
[2025-05-30] MEDS: VANCOmycin 1250MG/NS 250ml Bag 250 ML IV SCH (23:20)
[2025-05-31] VITALS (45 sets, daily range): BP systolic 98–136; BP diastolic 47–78; PULSE 75–100; RESP 15–28; O2SAT 84–95
[2025-05-31 04:32] LABS: MEAN PLATELET VOLUME 7.6 FL (7.4-10.4); RED CELL DISTRIBUTION WIDTH 14.2 % (11.5-14.5)
[2025-05-31 04:53] LABS: CREATININE 0.52 MG/DL (0.40-0.90); PHOSPHORUS 2.6 MG/DL (2.3-4.5); TOTAL CARBON DIOXIDE 34.2 MMOL/L (24-32); eCRCL 93 ML/MIN; eGFR > 90 ML/MIN
[2025-05-31] MEDS ORDERED: potassium Cl 20mEq/100mL bag 100 ML IV ONE ×2 (05:10→06:00)
--- NOTE | 2025-05-31 14:13 | RADIOLOGY REPORT ---
CHEST RADIOGRAPH Indication: CT water seal Technique: Single frontal view of the chest was obtained COMPARISON: DI CHEST,SINGLE VIEW on DOS: 05/30/25, DI CHEST,SINGLE VIEW on DOS: 05/29/25, DI CHEST,SINGLE VIEW on DOS: 05/29/25, DI CHEST,SINGLE VIEW on DOS: 05/28/25, DI CHEST,SINGLE VIEW on DOS: 05/27/25 FINDINGS: Lines and Tubes: Right central venous catheter in satisfactory position. Left chest tube in satisfactory position. Lungs: Multifocal airspace disease. Pleura: Small left apical pneumothorax. Cardiomediastinal contours: Unremarkable. Bones: Unremarkable. IMPRESSION: Small left apical pneumothorax.
[2025-05-31] MEDS: lactose-reduced food (Ensure Enlive) - 237ml bottle PO SCH (14:45)
--- NOTE | 2025-05-31 16:44 | PROGRESS NOTE ---
Progress Note ID Providers to CC ~ Progress Note Progress Note: sob/vss/lungs-persistent leak/labs noted/cxr noted a/p 1. s/p trisegmentectdomy-slow progress/cont supportivre care HECTOR RODRIGUEZ MD May 31, 2025 16:44
[2025-06-01] VITALS (41 sets, daily range): BP systolic 102–125; BP diastolic 43–69; PULSE 74–109; RESP 10–25; O2SAT 83–98
[2025-06-01] MEDS: ondansetron 4mg rapidly disintigrating tab PO PRN (01:04)
[2025-06-01] MEDS: COMMUNICATION ORDER 1 EA MISC MC ONE (04:18)
[2025-06-01 06:16] LABS: CREATININE 0.58 MG/DL (0.40-0.90); PHOSPHORUS 3.3 MG/DL (2.3-4.5); TOTAL CARBON DIOXIDE 36.0 MMOL/L (24-32); eCRCL 83 ML/MIN; eGFR > 90 ML/MIN
--- NOTE | 2025-06-01 06:42 | RADIOLOGY REPORT ---
CHEST RADIOGRAPH Indication: CHEST TUBE/EVAL FOR PNEUMO Technique: Single frontal view of the chest was obtained Comparison: DI CHEST,SINGLE VIEW on DOS: 05/31/25, DI CHEST,SINGLE VIEW on DOS: 05/30/25, DI CHEST,SINGLE VIEW on DOS: 05/29/25, DI CHEST,SINGLE VIEW on DOS: 05/29/25, DI CHEST,SINGLE VIEW on DOS: 05/28/25, DI CHEST,SINGLE VIEW on DOS: 05/31/25 FINDINGS: Lines and Tubes: Right central venous catheter in satisfactory position. Left chest tube in satisfactory position. Lungs: Multifocal airspace disease. Pleura: Small left apical pneumothorax. Cardiomediastinal contours: Unremarkable. Bones: Unremarkable. IMPRESSION: 1. Small left apical pneumothorax. No chnage
[2025-06-01 07:19] LABS: MEAN PLATELET VOLUME 7.6 FL (7.4-10.4); RED CELL DISTRIBUTION WIDTH 14.5 % (11.5-14.5)
[2025-06-01] MEDS: VANCOMYCIN LEVEL IV ONE (10:30)
--- NOTE | 2025-06-01 13:52 | PROGRESS NOTE ---
Progress Note ID Providers to CC ~ Progress Note Progress Note: awake/vss/lungs-small leak/cxr noted/labs noted a/p 1. s/p trisegmentectomy-persistent A-a gradient-appreciate Dr. Webber's input/cont supportive care HECTOR RODRIGUEZ MD Jun 01, 2025 13:52
[2025-06-01] MEDS: potassium Cl 20 mEq SR tablet PO PRN (19:18)
--- NOTE | 2025-06-01 20:28 | CARDIOLOGY REPORT ---
APPROVED REPORT EXAM: Limited 2D and color flow Echocardiogram with saline. Patient Location: 2009 Blood Pressure: 1216/64 mmHg Heart Rate: 84 bpm Indications Pulmonary Embolism Rule Out PFO VENETIAN BLIND WASHER: Butch Forrester MD Previous ECHO: 05/23/25, EF: 65 LEFT VENTRICLE The left ventricle is grossly normal in size and function. LVEF is 65-70%. ATRIA Saline study was performed with 4IV injections of 10 ccs of agitated normal saline at rest, with cough, and with valsalva. Negative saline study for right to left flow. PERICARDIUM Normal pericardium. No effusion. Other Information Study Quality: Fair due to body habitus Conclusion The left ventricle is grossly normal in size and function. LVEF is 65-70%. Saline study was performed with 4IV injections of 10 ccs of agitated normal saline at rest, with cough, and with valsalva. Negative saline study for right to left flow. Normal pericardium. No effusion.
[2025-06-01] MEDS: albumin (Human) 5% 250ml 250 ML IV ONE ×2 (20:35→22:12)
[2025-06-01] MEDS: HYDROmorphone inj. 0.5 MG/0.5 ML DISP.SYRIN IV PRN (21:07)
[2025-06-02] VITALS (39 sets, daily range): BP systolic 94–135; BP diastolic 40–60; PULSE 74–100; RESP 11–25; O2SAT 74–100
[2025-06-02 05:55] LABS: MEAN PLATELET VOLUME 7.9 FL (7.4-10.4); RED CELL DISTRIBUTION WIDTH 14.3 % (11.5-14.5)
[2025-06-02] MEDS: potassium Cl 20 mEq SR tablet PO PRN (05:58)
[2025-06-02 06:21] LABS: CREATININE 0.57 MG/DL (0.40-0.90); PHOSPHORUS 4.3 MG/DL (2.3-4.5); TOTAL CARBON DIOXIDE 36.2 MMOL/L (24-32); eCRCL 85 ML/MIN; eGFR > 90 ML/MIN
--- NOTE | 2025-06-02 07:36 | RADIOLOGY REPORT ---
CHEST RADIOGRAPH Indication: CHEST TUBE/EVAL FOR PNEUMO Technique: Single frontal view of the chest was obtained Comparison: DI CHEST,SINGLE VIEW on DOS: 06/01/25 FINDINGS: Lines and Tubes: There is a left apically oriented chest tube which is unchanged in position. Lungs: Hazy left upper and lower lobe opacities. Pleura: Left pleural effusion. No pneumothorax. Cardiomediastinal contours: Unremarkable Bones: No acute osseous abnormality. Chest wall left subcutaneous emphysema. IMPRESSION: 1. Unchanged left chest tube. 2. No pneumothorax. 3. Hazy left upper and lower lobe opacities. 4. Small left pleural effusion.
[2025-06-02] MEDS: HYDROmorph/NS 0.2 mg/ml PCA 100 ML IV SCH (14:15)
--- NOTE | 2025-06-02 20:37 | PROGRESS NOTE ---
Progress Note ID Providers to CC ~ Progress Note Progress Note: complains of pain/vss/lungs-min leak/labs noted/cxr noted a/p 1. s/p trisegmentectomy-slow progress/detention worker-pt HECTOR RODRIGUEZ MD Jun 02, 2025 20:37
[2025-06-03] VITALS (44 sets, daily range): BP systolic 109–141; BP diastolic 43–69; PULSE 77–97; RESP 13–23; O2SAT 90–99
--- NOTE | 2025-06-03 05:49 | RADIOLOGY REPORT ---
CHEST RADIOGRAPH Indication: CHEST TUBE/EVAL FOR PNEUMO Technique: 1 view Comparison: DI CHEST,SINGLE VIEW on DOS: 06/02/25, DI CHEST,SINGLE VIEW on DOS: 06/01/25, DI CHEST,SINGLE VIEW on DOS: 05/31/25, DI CHEST,SINGLE VIEW on DOS: 05/30/25, DI CHEST,SINGLE VIEW on DOS: 05/29/25 FINDINGS: Lines and Tubes: Unchanged. Lungs/Pleura: Unchanged. Cardiomediastinum: Unchanged. Other: Unchanged osseous structures. IMPRESSION: 1. No significant change from the previous study. Stable left chest tube without evidence of pneumothorax. 2. Persistent left mid to basilar mixed pulmonary opacities, with slight decrease in conspicuity compared to prior within the limits of differences in technique.
[2025-06-03 06:14] LABS: CREATININE 0.55 MG/DL (0.40-0.90); PHOSPHORUS 2.5 MG/DL (2.3-4.5); TOTAL CARBON DIOXIDE 35.4 MMOL/L (24-32); eCRCL 88 ML/MIN; eGFR > 90 ML/MIN
[2025-06-03 06:26] LABS: MEAN PLATELET VOLUME 8.2 FL (7.4-10.4); RED CELL DISTRIBUTION WIDTH 14.1 % (11.5-14.5)
[2025-06-03 09:41] LABS: C DIFF ANTIGEN NEGATIVE (NEGATIVE); C DIFF SPECIMEN=DIARRHEA? ACCEPTABLE; C DIFFICILE TOXINS A&B NEGATIVE (Neg)
--- NOTE | 2025-06-03 20:31 | PROGRESS NOTE ---
Progress Note Dictate Providers to CC CC: MARANDA CORNEJO MD ~ Progress Note: Subsequent surgical care on a 74-year-old woman who is postoperative day 10, status post: Left upper lobe robotic thoracoscopic trisegmentectomy. node dissection. Chest tube placement. Covering for Dr. Rangel Guevara for the next couple of days No acute issues White blood cell count climbing and 19.6 today Patient on high-flow oxygen with small air leak Continue current care and management in the intensive care unit Antibiotic Ordered?: N/A Objective Vitals Vital Signs Date Time Temp Pulse Resp B/P (MAP) Pulse Ox O2 Delivery O2 Flow Rate FiO2 06/03/25 20:19 95 23 High Flow Nasal Cannula 30.0 40 06/03/25 20:09 97 06/03/25 20:00 98.8 125/44 (71) Lab Results: 06/03/25 0421 06/03/25 0421 Coagulation Studies Laboratory Tests Test 05/17/25 11:08 Prothrombin Time 10.2 SECONDS (9.0-12.0) INR International Normalized Ratio 1.0 INR Activated Partial Thromboplast Time 28 SECONDS (22-32) MARANDA CORNEJO MD Jun 03, 2025 20:30
[2025-06-03] MEDS: VANCOmycin 1250MG/NS 250ml Bag 250 ML IV ONE (23:56)
[2025-06-04] VITALS (43 sets, daily range): BP systolic 109–137; BP diastolic 41–62; PULSE 71–96; RESP 12–24; O2SAT 86–97
[2025-06-04 02:24] LABS: CREATININE 0.66 MG/DL (0.40-0.90); PHOSPHORUS 2.8 MG/DL (2.3-4.5); TOTAL CARBON DIOXIDE 37.6 MMOL/L (24-32); eCRCL 73 ML/MIN; eGFR 88 ML/MIN
[2025-06-04 02:37] LABS: MEAN PLATELET VOLUME 7.9 FL (7.4-10.4); RED CELL DISTRIBUTION WIDTH 14.2 % (11.5-14.5)
--- NOTE | 2025-06-04 05:52 | RADIOLOGY REPORT ---
CHEST RADIOGRAPH Indication: CHEST TUBE/EVAL FOR PNEUMO Technique: Single frontal view of the chest was obtained COMPARISON: DI CHEST,SINGLE VIEW on DOS: 06/03/25, DI CHEST,SINGLE VIEW on DOS: 06/02/25, DI CHEST,SINGLE VIEW on DOS: 06/01/25, DI CHEST,SINGLE VIEW on DOS: 05/31/25, DI CHEST,SINGLE VIEW on DOS: 05/30/25 FINDINGS: Lines and Tubes: Left chest tube in satisfactory position. Lungs: Clear. Pleura: No effusion. No pneumothorax. Cardiomediastinal contours: Unremarkable. Bones: Unremarkable. IMPRESSION: Left chest tube in satisfactory position. No appreciable pneumothorax.
--- NOTE | 2025-06-04 18:35 | PROGRESS NOTE ---
Progress Note Dictate Providers to CC CC: MARANDA CORNEJO MD ~ Progress Note: Subsequent surgical care on a 74-year-old woman who is postoperative day 11, status post: Left upper lobe robotic thoracoscopic trisegmentectomy. node dissection. Chest tube placement. Covering for Dr. Rangel Guevara for the next couple of days No acute issues; Now extubated White blood cell count Still elevated at 20.8 Patient on high-flow oxygen with small air leak Continue current care and management in the intensive care unit Antibiotic Ordered?: Yes Objective Vitals Vital Signs Date Time Temp Pulse Resp B/P (MAP) Pulse Ox O2 Delivery O2 Flow Rate FiO2 06/04/25 18:00 81 15 121/50 (73) 95 High Flow Nasal Cannula 30.0 35 06/04/25 17:00 98.8 Lab Results: 06/04/25 0151 06/04/25 0151 Coagulation Studies Laboratory Tests Test 05/17/25 11:08 Prothrombin Time 10.2 SECONDS (9.0-12.0) INR International Normalized Ratio 1.0 INR Activated Partial Thromboplast Time 28 SECONDS (22-32) MARANDA CORNEJO MD Jun 04, 2025 18:35
[2025-06-05] VITALS (40 sets, daily range): BP systolic 114–142; BP diastolic 45–72; PULSE 73–97; RESP 10–23; O2SAT 91–96
[2025-06-05] MEDS: PCA WASTE DOCUMENTATION 1 MG ML MC SCH (03:42)
[2025-06-05 04:53] LABS: MEAN PLATELET VOLUME 7.9 FL (7.4-10.4); RED CELL DISTRIBUTION WIDTH 14.1 % (11.5-14.5)
[2025-06-05 05:11] LABS: CREATININE 0.56 MG/DL (0.40-0.90); PHOSPHORUS 2.8 MG/DL (2.3-4.5); TOTAL CARBON DIOXIDE 36.9 MMOL/L (24-32); eCRCL 83 ML/MIN; eGFR > 90 ML/MIN
--- NOTE | 2025-06-05 06:32 | RADIOLOGY REPORT ---
CHEST RADIOGRAPH Indication: CHEST TUBE/EVAL FOR PNEUMO Technique: Single frontal view of the chest was obtained COMPARISON: DI CHEST,SINGLE VIEW on DOS: 06/04/25, DI CHEST,SINGLE VIEW on DOS: 06/03/25, DI CHEST,SINGLE VIEW on DOS: 06/02/25, DI CHEST,SINGLE VIEW on DOS: 06/01/25, DI CHEST,SINGLE VIEW on DOS: 05/31/25 FINDINGS: Lines and Tubes: Unchanged. Lungs: Stable appearing left suprahilar opacity. Pleura: No effusion. No pneumothorax. Cardiomediastinal contours: Unremarkable Bones: Unremarkable IMPRESSION: 1. Stable left suprahilar opacity. 2. Chest tube unchanged. No appreciable pneumothorax.
--- NOTE | 2025-06-05 18:27 | PROGRESS NOTE ---
Progress Note Dictate Providers to CC CC: MARANDA CORNEJO MD ~ Progress Note: Subsequent surgical care on a 74-year-old woman who is postoperative day 12, status post: Left upper lobe robotic thoracoscopic trisegmentectomy. node dissection. Chest tube placement. Covering for Dr. Rangel Guevara Until Tuesday morning No acute issues; Now extubated White blood cell count Slightly improved Patient on high-flow oxygen with Persistent small air leak Continue current care and management in the intensive care unit Antibiotic Ordered?: N/A Objective Vitals Vital Signs Date Time Temp Pulse Resp B/P (MAP) Pulse Ox O2 Delivery O2 Flow Rate FiO2 06/05/25 18:00 99.3 85 15 129/56 (80) 94 High Flow Nasal Cannula 25.0 30 Lab Results: 06/05/25 0421 06/05/25 0421 Coagulation Studies Laboratory Tests Test 05/17/25 11:08 Prothrombin Time 10.2 SECONDS (9.0-12.0) INR International Normalized Ratio 1.0 INR Activated Partial Thromboplast Time 28 SECONDS (22-32) MARANDA CORNEJO MD Jun 05, 2025 18:27
[2025-06-06] VITALS (38 sets, daily range): BP systolic 104–142; BP diastolic 39–85; PULSE 65–87; RESP 12–22; O2SAT 89–97
[2025-06-06 05:05] LABS: MEAN PLATELET VOLUME 7.8 FL (7.4-10.4); RED CELL DISTRIBUTION WIDTH 14.6 % (11.5-14.5)
[2025-06-06 05:23] LABS: CREATININE 0.63 MG/DL (0.40-0.90); PHOSPHORUS 2.8 MG/DL (2.3-4.5); TOTAL CARBON DIOXIDE 35.2 MMOL/L (24-32); eCRCL 74 ML/MIN; eGFR > 90 ML/MIN
--- NOTE | 2025-06-06 06:33 | RADIOLOGY REPORT ---
CHEST RADIOGRAPH Indication: CHEST TUBE/EVAL FOR PNEUMO Technique: Single frontal view of the chest was obtained COMPARISON: DI CHEST,SINGLE VIEW on DOS: 06/05/25, DI CHEST,SINGLE VIEW on DOS: 06/04/25, DI CHEST,SINGLE VIEW on DOS: 06/03/25, DI CHEST,SINGLE VIEW on DOS: 06/02/25, DI CHEST,SINGLE VIEW on DOS: 06/01/25 FINDINGS: Lines and Tubes: Stable appearing left chest tube. Lungs: Minimal left apical pneumothorax. Small right pleural effusion. Mild left suprahilar pulmonary airspace disease. Cardiomediastinal contours: Unremarkable Bones: Unremarkable IMPRESSION: 1. Minimal left apical pneumothorax. Chest tube in stable position. 2. Small right pleural effusion. 3. Mild left suprahilar pulmonary airspace disease.
[2025-06-06 08:56] LABS: LYMPHOCYTES % (MANUAL) 13.0 % (21-51); METAMYLEOCYTES% (MANUAL) 1.0 % (0-0); NEUTROPHILS % (MANUAL) 73.0 % (42-75)
[2025-06-06 08:57] LABS: MONOCYTES % (MANUAL) 13.0 % (2-12); PLATELET ESTIMATE INCREASED
--- NOTE | 2025-06-06 12:30 | RADIOLOGY REPORT ---
EXAM: DI CHEST,SINGLE VIEW Indication: ptx @ 1200 Technique: Single frontal view of the chest was obtained Comparison: DI CHEST,SINGLE VIEW on DOS: 06/06/25, DI CHEST,SINGLE VIEW on DOS: 06/05/25, DI CHEST,SINGLE VIEW on DOS: 06/04/25, DI CHEST,SINGLE VIEW on DOS: 06/03/25, DI CHEST,SINGLE VIEW on DOS: 06/02/25, DI CHEST,SINGLE VIEW on DOS: 06/06/25 FINDINGS: Lines and Tubes: Stable appearing left chest tube. Lungs: Minimal left apical pneumothorax. Small right pleural effusion. Mild left suprahilar pulmonary airspace disease. Cardiomediastinal contours: Unremarkable Bones: Unremarkable IMPRESSION: No significant change compared to prior exam.
--- NOTE | 2025-06-06 20:55 | PROGRESS NOTE ---
Progress Note ID Providers to CC ~ Progress Note Progress Note: no leak/trial of waterseal HECTOR RODRIGUEZ MD Jun 06, 2025 20:55
[2025-06-06] MEDS: VANCOMYCIN LEVEL IV ONE (22:30)
[2025-06-07] VITALS (38 sets, daily range): BP systolic 96–132; BP diastolic 36–56; PULSE 69–100; RESP 12–20; O2SAT 88–97
[2025-06-07 04:56] LABS: MEAN PLATELET VOLUME 7.7 FL (7.4-10.4); RED CELL DISTRIBUTION WIDTH 14.8 % (11.5-14.5)
[2025-06-07 05:14] LABS: CREATININE 0.60 MG/DL (0.40-0.90); PHOSPHORUS 3.9 MG/DL (2.3-4.5); TOTAL CARBON DIOXIDE 34.5 MMOL/L (24-32); eCRCL 77 ML/MIN; eGFR > 90 ML/MIN
--- NOTE | 2025-06-07 06:11 | RADIOLOGY REPORT ---
CHEST RADIOGRAPH Indication: CHEST TUBE/EVAL FOR PNEUMO Technique: Single frontal view of the chest was obtained COMPARISON: DI CHEST,SINGLE VIEW on DOS: 06/06/25, DI CHEST,SINGLE VIEW on DOS: 06/06/25, DI CHEST,SINGLE VIEW on DOS: 06/05/25, DI CHEST,SINGLE VIEW on DOS: 06/04/25, DI CHEST,SINGLE VIEW on DOS: 06/03/25 FINDINGS: Lines and Tubes: Left chest tube in-situ. Lungs: Unchanged small left apical pneumothorax. Pleura: No effusion. IMPRESSION: Unchanged small left apical pneumothorax.
[2025-06-07] MEDS ORDERED: NICO-687 TOP (17:17)
[2025-06-07] MEDS ORDERED: CHOL20002 PO (17:20)
[2025-06-07] MEDS ORDERED: IBUP-1986 PO (17:28)
[2025-06-07] MEDS: lactose-reduced food (Ensure Enlive) - 237ml bottle PO SCH (18:18)
--- NOTE | 2025-06-07 19:42 | PROGRESS NOTE ---
Progress Note ID Providers to CC ~ Progress Note Progress Note: doing well/chest rube removed/rehab pending HECTOR RODRIGUEZ MD Jun 07, 2025 19:42
[2025-06-08] VITALS (40 sets, daily range): BP systolic 96–130; BP diastolic 37–71; PULSE 80–97; RESP 11–24; O2SAT 83–100
[2025-06-08 06:09] LABS: MEAN PLATELET VOLUME 7.9 FL (7.4-10.4); RED CELL DISTRIBUTION WIDTH 15.3 % (11.5-14.5)
[2025-06-08 06:13] LABS: CREATININE 0.65 MG/DL (0.40-0.90)
[2025-06-08 06:14] LABS: PHOSPHORUS 4.5 MG/DL (2.3-4.5); eCRCL 71 ML/MIN; eGFR 90 ML/MIN
[2025-06-08 06:15] LABS: TOTAL CARBON DIOXIDE 36.7 MMOL/L (24-32)
--- NOTE | 2025-06-08 12:26 | RADIOLOGY REPORT ---
CLINICAL HISTORY: prx TECHNIQUE: Single view of the chest was obtained. COMPARISON: DI CHEST,SINGLE VIEW on DOS: 06/07/25, DI CHEST,SINGLE VIEW on DOS: 06/06/25, DI CHEST,SINGLE VIEW on DOS: 06/06/25, DI CHEST,SINGLE VIEW on DOS: 06/05/25, DI CHEST,SINGLE VIEW on DOS: 06/04/25 FINDINGS: The heart size and pulmonary vasculature are normal. A left chest tube has been removed. There is is slightly larger small left apical pneumothorax. There is mild right basilar atelectasis. There are right axillary surgical clips. IMPRESSION: Slightly larger small left apical pneumothorax.
--- NOTE | 2025-06-08 17:53 | PROGRESS NOTE ---
Progress Note ID Providers to CC ~ Progress Note Progress Note: doing well/awaiting rehab HECTOR RODRIGUEZ MD Jun 08, 2025 17:53
[2025-06-09] VITALS (25 sets, daily range): BP systolic 101–120; BP diastolic 36–60; PULSE 72–99; RESP 13–20; O2SAT 93–100
[2025-06-09 05:34] LABS: MEAN PLATELET VOLUME 8.0 FL (7.4-10.4); RED CELL DISTRIBUTION WIDTH 15.2 % (11.5-14.5)
[2025-06-09 05:58] LABS: CREATININE 0.58 MG/DL (0.40-0.90); PHOSPHORUS 3.5 MG/DL (2.3-4.5); TOTAL CARBON DIOXIDE 38.1 MMOL/L (24-32); eCRCL 74 ML/MIN; eGFR > 90 ML/MIN
--- NOTE | 2025-06-09 19:58 | PROGRESS NOTE ---
Progress Note ID Providers to CC ~ Progress Note Progress Note: doing well/transfer to [facility] today HECTOR RODRIGUEZ MD Jun 09, 2025 19:58
--- NOTE | 2025-06-09 21:40 | DISCHARGE SUMMARY ---
DATE OF DISCHARGE: 06/09/2025 DICTATING PHYSICIAN: Rangel Guevara MD ADMISSION DIAGNOSES: * left upper lobe mass. * Chronic obstructive pulmonary disease. * History of carcinoid tumor. DISCHARGE DIAGNOSES: * left upper lobe mass. * Chronic obstructive pulmonary disease. * History of carcinoid tumor. PROCEDURE: Robotic left upper lobe trisegmentectomy with node dissection. 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 The patient developed a left upper lobe mass. PFTs were adequate for resection. The patient was admitted and underwent a robotic left upper lobe trisegmentectomy, which was performed uneventfully. The patient was transferred to ICU postoperatively. The patient had a chest tube in place. The patient did well for the first couple of days and then developed progressive hypoxemia and had a persistent air leak. As part of her workup, she had a CT of the chest, developed a PE, and lower extremity Dopplers, which ultimately led to an echocardiogram with a bubble study, which showed ____ evidence of a right to left shunt. Echocardiogram revealed good LV function. ____ input was sought and the patient was placed on high-dose steroids in an attempt to try to improve her hypoxemia. The patient started to make slow progress. Chest tubes were removed and output diminished to acceptable levels, and the patient was ultimately discharged to rehab on 06/09. She has been to rehab. DISPOSITION: To rehab. FOLLOWUP: Follow up with Dr. Guevara in 1-2 weeks. DISCHARGE MEDICATIONS: See chart. Rangel Guevara MD TID: [id number] RECEIPT: [id number] ELLA/MENG
== END 2025-06-09 16:00 | DRG 163 ==
LOC: PAS IN 08:09 → CICU 2S 17:37
PROVIDERS: ADMIT Surgery; ATTEND Surgery
PROC: 07B74ZZ Excision of Thorax Lymphatic, Percutaneous Endoscopic Approach (ICD-10-PCS; 2025-05-24)
PROC: 0BBG4ZZ Excision of Left Upper Lung Lobe, Percutaneous Endoscopic Approach (ICD-10-PCS; 2025-05-24)
PROC: BW241ZZ Computerized Tomography (CT Scan) of Chest and Abdomen using Low Osmolar Contrast (ICD-10-PCS; 2025-05-24)
PROC: 8E0W4CZ Robotic Assisted Procedure of Trunk Region, Percutaneous Endoscopic Approach (ICD-10-PCS; principal; 2025-05-24 10:32)
PROC: 5A09457 Assistance with Respiratory Ventilation, 24-96 Consecutive Hours, Continuous Positive Airway Pressure (ICD-10-PCS; 2025-05-26)
PROC: BW241ZZ Computerized Tomography (CT Scan) of Chest and Abdomen using Low Osmolar Contrast (ICD-10-PCS; 2025-05-27)
PROC: 5A09357 Assistance with Respiratory Ventilation, Less than 24 Consecutive Hours, Continuous Positive Airway Pressure (ICD-10-PCS; 2025-05-27)
PROC: 5A0935A Assistance with Respiratory Ventilation, Less than 24 Consecutive Hours, High Flow/Velocity Cannula (ICD-10-PCS; 2025-05-28)
PROC: 5A0935A Assistance with Respiratory Ventilation, Less than 24 Consecutive Hours, High Flow/Velocity Cannula (ICD-10-PCS; 2025-06-08)
DX: C34.12 Malignant neoplasm of upper lobe, left bronchus or lung (principal); J96.00 Acute respiratory failure, unspecified whether with hypoxia or hypercapnia; J93.82 Other air leak; J95.61 Intraoperative hemorrhage and hematoma of a respiratory system organ or structure complicating a respiratory system procedure; J44.9 Chronic obstructive pulmonary disease, unspecified; Z79.899 Other long term (current) drug therapy; Z90.2 Acquired absence of lung [part of]
CPT/HCPCS: 36415; 36600; 71045; 71046; 71250; 71275; 80053; 80202; 81001; 82803; 82948; 83605; 83735; 84100; 84443; 84484; 85007; 85018; 85025; 85610; 85730; 86885; 86900; 86901; 86920; 87040; 87070; 87077; 87081; 87088; 87186; 87324; 87449; 88305; 88309; 88331; 92508; 92616; 93308; 93970; 94640; 94660; 94664; 94668; 94760; 97110; 97116; 97161; 97530; 97535; A4615; A4618; A4620; A4624; A4628; A5200; A6196; A6213; A6222; A6223; A6250; A6253; A6258; A6402; A6449; A7000; A7048; A7526; C1758; C9250; G0378; J0131; J0666; J0692; J1171; J1644; J1720; J1885; J1938; J2003; J2250; J2270; J2371; J2405; J2704; J2919; J3010; J3373; J3374; J3480; J3490; J7040; J7120; P9045; P9047; Q9967